=== PATIENT | female | born 1960 | race Caucasian/White ===

== ENCOUNTER 2017-01-06 16:28 | Emergency (ER) | payer OTHER ==
[~2017-01-06] VITALS: Ht 170.2 cm; Wt 100.0 kg
[~2017-01-06 16:28] MED LIST: IBUP200T2 PO; IMIT100T PO; TYLE325T PO
[2017-01-06 16:30] VITALS: BP 165/70; PULSE 97; RESP 28; TEMP 97.7; O2SAT 98
[2017-01-06] MEDS ORDERED: SODIUM CHLOR 0.9% 1000 ML INJ 1,000 ML IV SCH (17:23)
[2017-01-06 17:27] LABS: AUTOMATED NEUTROPHIL # 6.8 TH/MM3 (1.8-7.7); BASOPHIL # 0.1 TH/MM3 (0-0.2); BASOPHIL % 0.7 % (0.0-2.0); EOSINOPHIL # 0.1 TH/MM3 (0-0.4); EOSINOPHIL % 0.8 % (0.0-4.0); HEMATOCRIT 41.7 % (35.0-46.0); HEMO FLAGS DIFF FINAL; LYMPH % 30.5 % (9.0-44.0); LYMPHOCYTE # 3.5 TH/MM3 (1.0-4.8); MEAN CELL VOLUME 82.8 FL (80.0-100.0); MEAN CORPUSCULAR HEMOGLOBIN 28.1 PG (27.0-34.0); MEAN CORPUSCULAR HGB CONC 33.9 % (32.0-36.0); PLATELET COUNT 289 TH/MM3 (150-450); RED BLOOD COUNT 5.04 MIL/MM3 (4.00-5.30); RED CELL DISTRIBUTION WIDTH 13.1 % (11.6-17.2); WHITE BLOOD COUNT 11.4 TH/MM3 (4.0-11.0)
[2017-01-06] MEDS ORDERED: MORPHINE SULFATE 4 MG/ML INJ IV PUSH ONE (17:30)
[2017-01-06] MEDS ORDERED: KETOROLAC TROMETHAMINE 30 MG/ML (IVP) VIAL IVP ONE (17:30)
[2017-01-06 17:33] LABS: BACTERIA, URINE FEW /hpf; BLOOD, URINE TRACE (NEG); COMMENT (UR) CULT NOT INDICATED; CULTURE IF INDICATED CULT NOT INDICATED; GLUCOSE,URINE NEG (NEG); HYALINE CAST, URINE 2 /lpf (RARE); KETONE, URINE 10 mg/dL (NEG); MUCUS URINE FEW /lpf (OCC); NITRITE,URINE NEG (NEG); SQUAMOUS EPITHELIAL CELL URINE 17 /hpf (0-5); URINE COLOR YELLOW (YELLW/STRAW)
--- NOTE | 2017-01-06 17:37 | PD ---
HPI Chief Complaint: Complaint Time Seen by Provider: 17:23 Travel History International Travel<30 days: No Contact w/Intl Traveler<30days: No Traveled to known affect area: No History of Present Illness HPI 56-year-old female complaining of severe left flank pain and left-sided abdominal pain. Patient states that the pain started this afternoon. Patient states that she has dysuria but no frequency. Patient denies any vaginal discharge or bleeding. Patient states that she has nausea but no vomiting or diarrhea. Patient states the pain is severe sharp stabbing pain started on the left flank area with radiation to left side abdomen. Patient denies any fever chills. Patient denies any history kidney stone. Patient status post uterine ablation procedure In the past. PFSH Past Medical History ?: Not Social History Alcohol Use: Yes Tobacco Use: No Substance Use: No Allergies-Medications (Allergen,Severity, Reaction): Coded Allergies: Tetanus Toxoid (Verified Allergy, Severe, SWELLING AND FEVER, 01/05/17) Reported Meds & Prescriptions Reported Meds & Active Scripts Active Ultram (Tramadol HCl) 50 Mg Tab 50 Mg PO Q6H PRN Robaxin (Methocarbamol) 750 Mg Tab 750 Mg PO QID Mobic (Meloxicam) 15 Mg Tab 15 Mg PO DAILY Imitrex (Sumatriptan Succinate) 100 Mg Tab 100 Mg PO ONCE PRN If a satisfactory response has not been obtained at 2 hours, a second dose may be administered Review of Systems General / Constitutional: No: Fever Eyes: No: Visual changes HENT: No: Headaches Cardiovascular: No: Chest Pain or Discomfort Respiratory: No: Shortness of Breath Gastrointestinal: Positive: Nausea, Abdominal Pain Genitourinary: No: Dysuria Musculoskeletal: No: Pain Skin: No Rash Neurologic: No: Weakness Psychiatric: No: Depression Endocrine: No: Polydipsia Hematologic/Lymphatic: No: Easy Bruising Physical Exam Narrative GENERAL: Well-nourished, well-developed patient. SKIN: Focused skin assessment warm/dry. HEAD: Normocephalic. EYES: No scleral icterus. No injection or drainage. NECK: Supple, trachea midline. No JVD or lymphadenopathy. CARDIOVASCULAR: Regular rate and rhythm without murmurs, gallops, or rubs. RESPIRATORY: Breath sounds equal bilaterally. No accessory muscle use. GASTROINTESTINAL: Abdomen soft, nondistended. Mild to moderate tenderness and palpation left flank area. MUSCULOSKELETAL: No cyanosis, or edema. BACK: Nontender without obvious deformity. No CVA tenderness. Neurologic exam normal. Data Data Last Documented VS Vital Signs Date Time Temp Pulse Resp B/P Pulse Ox O2 Delivery O2 Flow Rate FiO2 01/06/17 17:39 98 01/06/17 16:30 97.7 97 28 165/70 Room Air Orders Urinalysis - C+S If Indicated (01/06/17 16:54) Complete Blood Count With Diff (01/06/17 16:54) Basic Metabolic Panel (Bmp) (01/06/17 16:54) Comprehensive Metabolic Panel (01/06/17 17:23) Lipase (01/06/17 17:23) Prothrombin Time / Inr (Pt) (01/06/17 17:23) Act Partial Throm Time (Ptt) (01/06/17 17:23) Ct Abd/Pel W/O Iv Contrast (01/06/17 17:23) Iv Access Insert/Monitor (01/06/17 17:23) Ecg Monitoring (01/06/17 17:23) Oximetry (01/06/17 17:23) Morphine Inj (Morphine Inj) (01/06/17 17:30) Sodium Chlor 0.9% 1000 Ml Inj (Ns 1000 M (01/06/17 17:23) Ketorolac Inj (Toradol Inj) (01/06/17 17:30) Labs Laboratory Tests Test 01/06/17 01/06/17 01/06/17 17:00 17:10 17:25 Urine Color YELLOW Urine Turbidity HAZY Urine pH 5.0 Urine Specific [place] 1.029 Urine Protein 30 mg/dL Urine Glucose (UA) NEG mg/dL Urine Ketones 10 mg/dL Urine Occult Blood TRACE Urine Nitrite NEG Urine Bilirubin NEG Urine Urobilinogen LESS THAN 2.0 MG/DL Urine Leukocyte Esterase MOD Urine RBC 3 /hpf Urine WBC 5 /hpf Urine Squamous Epithelial 17 /hpf Cells Urine Bacteria FEW /hpf Urine Hyaline Casts 2 /lpf Urine Mucus FEW /lpf Microscopic Urinalysis Comment CULT NOT INDICATED White Blood Count 11.4 TH/MM3 Red Blood Count 5.04 MIL/MM3 Hemoglobin 14.2 GM/DL Hematocrit 41.7 % Mean Corpuscular Volume 82.8 FL Mean Corpuscular Hemoglobin 28.1 PG Mean Corpuscular Hemoglobin 33.9 % Concent Red Cell Distribution Width 13.1 % Platelet Count 289 TH/MM3 Mean Platelet Volume 8.8 FL Neutrophils (%) (Auto) 60.0 % Lymphocytes (%) (Auto) 30.5 % Monocytes (%) (Auto) 8.0 % Eosinophils (%) (Auto) 0.8 % Basophils (%) (Auto) 0.7 % Neutrophils # (Auto) 6.8 TH/MM3 Lymphocytes # (Auto) 3.5 TH/MM3 Monocytes # (Auto) 0.9 TH/MM3 Eosinophils # (Auto) 0.1 TH/MM3 Basophils # (Auto) 0.1 TH/MM3 CBC Comment DIFF FINAL Differential Comment Sodium Level 140 MEQ/L 139 MEQ/L Potassium Level 3.2 MEQ/L 3.5 MEQ/L Chloride Level 104 MEQ/L 103 MEQ/L Carbon Dioxide Level 20.9 MEQ/L 18.5 MEQ/L Anion Gap 15 MEQ/L 18 MEQ/L Blood Urea Nitrogen 24 MG/DL 25 MG/DL Creatinine 1.18 MG/DL 1.17 MG/DL Estimat Glomerular Filtration 48 ML/MIN 48 ML/MIN Rate Random Glucose 120 MG/DL 133 MG/DL Calcium Level 10.3 MG/DL 10.1 MG/DL Prothrombin Time 10.6 SEC Prothromb Time International 1.0 RATIO Ratio Activated Partial 23.8 SEC Thromboplast Time Total Bilirubin 0.4 MG/DL Aspartate Amino Transf 30 U/L (AST/SGOT) Alanine Aminotransferase 33 U/L (ALT/SGPT) Alkaline Phosphatase 101 U/L Total Protein 7.9 GM/DL Albumin 4.3 GM/DL Lipase 123 U/L [facility] Medical Decision Making Medical Screen Exam Complete: Yes Emergency Medical Condition: Yes Interpretation(s) 1835 PM. CBC within normal limit. Bicarbonate 18.5. BUN 25. Creatinine 1.17. GFR 48. UA positive for bacteria. Differential Diagnosis Differential diagnosis including nephrolithiasis, pyelonephritis, colitis, musculoskeletal. Narrative Course 56-year-old female with left flank pain and left side abdominal pain. Normal saline solution 1 25 cc an hour. Toradol 30 mg IV. Morphine 2 mg IV. Diagnosis Primary Impression: Left flank pain Patient Instructions: General Instructions Additional Instructions: Take medications as directed for pain. Follow-up with personal physician. Return if persistent problem or worse. Med/Other Pt SpecificInfo: Prescription(s) given Scripts Tramadol (Ultram)50 Mg Tab50 Mg PO Q6H PRN (PAIN) #20 TAB Ref 0 Prov:Natan Cohen MD 01/06/17 Methocarbamol (Robaxin)750 Mg [id number] Mg PO QID #40 TAB Prov:Natan Cohen MD 01/06/17 Meloxicam (Mobic)15 Mg Tab15 Mg PO DAILY #20 TAB Prov:Natan Cohen MD 01/06/17 Natan Cohen MD Jan 06, 2017 17:37
[2017-01-06 17:39] VITALS: O2SAT 98
[2017-01-06 17:50] LABS: BICARBONATE 20.9 MEQ/L (21.0-32.0); POTASSIUM 3.2 MEQ/L (3.5-5.1)
[2017-01-06 18:14] LABS: ALT (GPT) 33 U/L (10-53)
[2017-01-06 18:15] LABS: ANION GAP 18 MEQ/L (5-15); AST (GOT) 30 U/L (15-37); BICARBONATE 18.5 MEQ/L (21.0-32.0); BLOOD UREA NITROGEN 25 MG/DL (7-18); CHLORIDE 103 MEQ/L (98-107); GLOMERULAR FILTRATION RATE 48 ML/MIN (>89); SODIUM (NA) 139 MEQ/L (136-145)
[2017-01-06 18:16] LABS: ALKALINE PHOSPHATASE 101 U/L (45-117); POTASSIUM 3.5 MEQ/L (3.5-5.1); TOTAL BILIRUBIN ADULT 0.4 MG/DL (0.2-1.0)
[2017-01-06 18:29] LABS: APTT (PATIENT) 23.8 SEC (24.3-30.1); PROTHROMBIN TIME - PATIENT 10.6 SEC (9.8-11.6)
--- NOTE | 2017-01-06 18:40 | RADRPT ---
EXAM DATE/TIME: 01/06/2017 17:53 [facility] COMPARISON: No previous studies available for comparison. INDICATIONS : Left flank pain X one day. ORAL CONTRAST: No oral contrast ingested. RADIATION DOSE: 13.88 CTDIvol (mGy) MEDICAL HISTORY : None SURGICAL HISTORY : Appendectomy. ENCOUNTER: Initial ACUITY: 1 day PAIN SCALE: 7/10 LOCATION: Left flank TECHNIQUE: Volumetric scanning of the abdomen and pelvis was performed. Using automated exposure control and ad justment of the mA and/or kV according to patient size, radiation dose was kept as low as reasonably achievable to obtain optimal diagnostic quality images. DICOM format image data is available electro nically for review and comparison. FINDINGS: LOWER LUNGS: The visualized lower lungs are clear. LIVER: Homogeneous density without lesion. There is no dilation of the biliary tree. A small calcified gall stone layering within an otherwise normal-appearing gallbladder. SPLEEN: Normal size without lesion. PANCREAS: Within normal limits. KIDNEYS: Normal in size and shape. There is no mass or hydronephrosis. A 1 mm nonobstructing right renal ston e involving the lower pole. ADRENAL GLANDS: Within normal limits. VASCULAR: There is no aortic aneurysm. BOWEL/MESENTERY: The stomach, small bowel, and colon demonstrate no acute abnormality. There is no free intraperitone al air or fluid. ABDOMINAL WALL: Within normal limits. RETROPERITONEUM: There is no lymphadenopathy. BLADDER: No wall thickening or mass. REPRODUCTIVE: Within normal limits. INGUINAL: There is no lymphadenopathy or hernia. MUSCULOSKELETAL: Within normal limits for patient age. CONCLUSION: 1. No acute abnormality. In particular, no left renal stones or hydronephrosis. 2. 1 mm nonobstructing right renal stone. 3. Cholelithiasis. Keith So Jr., MD on January 06, 2017 at 18:35 Board Certified Radiologist. This report was verified electronically.
[2017-01-06] MEDS ORDERED: ROBA750T PO (19:30)
[2017-01-06] MEDS ORDERED: MOBI15TA PO (19:30)
[2017-01-06] MEDS ORDERED: ULTR50TA5 PO (19:30)
== END 2017-01-06 19:53 | disposition home or self-care (01) ==
LOC: NEPE 16:28
DX: R10.9 Unspecified abdominal pain (principal); R30.0 Dysuria; R11.0 Nausea
CPT/HCPCS: 74176; 80048; 80053; 81001; 83690; 85025; 85610; 85730; 96374; 96375; 99285; J1885; J2270; J7030